=== PATIENT | male | born 2000 | race Caucasian/White ===

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

== ENCOUNTER → 2018-06-24 | Outpatient (CLI) | payer OTHER, BC ==
[2018-06-24 13:28] LABS: BASO % 0.3 % (0.0-1.0); EOS # 0.2 10^3/uL (0.0-0.50); EOS % 1.3 % (0.0-3.0); HEMATOCRIT 41.5 % (42.0-52.0); HEMOGLOBIN 13.7 g/dl (13.5-17.5); IMMATURE GRANULOCYTE % 0.4 % (0-3.0); LYMPH # 2.2 10^3/uL (1.5-6.5); LYMPH % 17.6 % (24.0-44.0); MEAN CORPUSCULAR HEMOGLOBIN 30.2 pg (27.0-33.0); MEAN CORPUSCULAR VOLUME 91.4 fl (80.0-96.0); MONO # 0.8 10^3/uL (0.0-0.8); MONO % 6.2 % (0.0-5.0); NEUTROPHILS # 9.4 10^3/uL (1.8-7.7); NEUTROPHILS % 74.2 % (36.0-66.0); PLATELET COUNT, AUTOMATED 422 10^3/uL (150-450); RED BLOOD COUNT 4.54 10^6/uL (4.30-6.10); RED CELL DISTRIBUTION WIDTH 11.7 % (11.5-14.5); WHITE BLOOD COUNT 12.7 10^3/uL (4.0-10.0)
[2018-06-24 13:58] LABS: ALBUMIN 3.9 GM/DL (3.2-5.2); ALBUMIN/GLOBULIN RATIO 0.95 (1.00-1.93); ALKALINE PHOSPHATASE 97 U/L (45-117); ALT/SGPT 20 U/L (12-78); ANION GAP 7 MEQ/L (8-16); AST/SGOT 12 U/L (7-37); BILIRUBIN,TOTAL 0.6 MG/DL (0.2-1.0); BLOOD UREA NITROGEN 11 MG/DL (7-18); CALCIUM LEVEL 9.2 MG/DL (8.5-10.1); CARBON DIOXIDE LEVEL 30 MEQ/L (21-32); CHLORIDE LEVEL 100 MEQ/L (98-107); CHOLESTEROL LEVEL 137 MG/DL (<200); CHOLESTEROL RISK RATIO 4.281 (<5); CREATININE FOR GFR 0.89 MG/DL (0.70-1.30); FREE T4 1.36 NG/DL (0.78-1.33); GLUCOSE, FASTING 106 MG/DL (70-100); HDL CHOLESTEROL 32 MG/DL (>40); LDL CHOLESTEROL 96 MG/DL (<100); NON-HDL-C 105 MG/DL; POTASSIUM SERUM 4.2 MEQ/L (3.5-5.1); SODIUM LEVEL 137 MEQ/L (136-145); TRIGLYCERIDES LEVEL 44 MG/DL (<150)
[2018-06-26 10:26] LABS: TOTAL 25(OH) VITAMIN D 21.3 NG/ML (30.0-100.0)
== END ==
LOC: M LAB 12:58
DX: R07.9 Chest pain, unspecified (principal)
CPT/HCPCS: 84443

== ENCOUNTER → 2018-10-12 | Outpatient (CLI) | payer OTHER ==
[2018-10-12 19:27] LABS: FREE T4 1.22 NG/DL (0.78-1.33); THYROID STIMULATING HORMONE 1.15 uIU/ML (0.463-3.98); TOTAL 25(OH) VITAMIN D 80.7 NG/ML (30.0-100.0)
[2018-10-12 21:03] LABS: BASO % 0.4 % (0.0-1.0); EOS # 0.1 10^3/uL (0.0-0.50); EOS % 1.5 % (0.0-3.0); HEMATOCRIT 49.4 % (42.0-52.0); HEMOGLOBIN 16.7 g/dl (13.5-17.5); LYMPH # 2.7 10^3/uL (1.5-6.5); LYMPH % 35.1 % (24.0-44.0); MEAN CORPUSCULAR HEMOGLOBIN 30.1 pg (27.0-33.0); MEAN CORPUSCULAR HGB CONC 33.8 g/dl (32.0-36.5); MEAN CORPUSCULAR VOLUME 89.2 fl (80.0-96.0); MONO # 0.4 10^3/uL (0.0-0.8); MONO % 4.9 % (0.0-5.0); NEUTROPHILS # 4.4 10^3/uL (1.8-7.7); PLATELET COUNT, AUTOMATED 238 10^3/uL (150-450); RED BLOOD COUNT 5.54 10^6/uL (4.30-6.10); WHITE BLOOD COUNT 7.5 10^3/uL (4.0-10.0)
== END ==
LOC: M SMT 15:22
PROVIDERS: ATTEND Family Medicine
DX: F32.1 Major depressive disorder, single episode, moderate (principal)

== ENCOUNTER → 2021-02-26 | Outpatient (CLI) | payer OTHER ==
[2021-02-26 16:55] LABS: BASO % 0.5 % (0.0-1.0); EOS # 0.2 10^3/uL (0.0-0.5); EOS % 2.7 % (0.0-3.0); HEMATOCRIT 48.9 % (42.0-52.0); HEMOGLOBIN 16.5 g/dl (13.5-17.5); LYMPH # 2.5 10^3/uL (1.5-5.0); LYMPH % 32.1 % (24.0-44.0); MEAN CORPUSCULAR HEMOGLOBIN 30.7 pg (27.0-33.0); MEAN CORPUSCULAR HGB CONC 33.7 g/dl (32.0-36.5); MEAN CORPUSCULAR VOLUME 91.1 fl (80.0-96.0); MONO # 0.5 10^3/uL (0.0-0.8); NEUTROPHILS # 4.5 10^3/uL (1.5-8.5); NEUTROPHILS % 58.4 % (36.0-66.0); PLATELET COUNT, AUTOMATED 230 10^3/uL (150-450); RED BLOOD COUNT 5.37 10^6/uL (4.30-6.10); WHITE BLOOD COUNT 7.7 10^3/uL (4.0-10.0)
[2021-02-26 17:34] LABS: ALBUMIN 4.5 GM/DL (3.2-5.2); BILIRUBIN,DIRECT 0.2 MG/DL (0.0-0.2); BILIRUBIN,TOTAL 1.3 MG/DL (0.2-1.0); TOTAL PROTEIN 7.9 GM/DL (6.4-8.2)
== END ==
LOC: M LAB 16:13
PROVIDERS: ATTEND Physician Assistant
DX: R94.5 Abnormal results of liver function studies (principal)

== ENCOUNTER → 2021-02-27 | Outpatient (CLI) | payer OTHER ==
--- NOTE | 2021-02-27 11:45 | REP ---
INDICATION: Q67.6 PECTUS EXCAVATUM. COMPARISON: None. TECHNIQUE: Noncontrast CT chest with coronal and sagittal reconstructions. FINDINGS: Of the lung ashby are well inflated without infiltrate, pleural effusion, atelectasis or mass. There is a pectus excavatum chest wall configuration indenting the right heart and displacing the heart to the left of midline further. There is no cardiomegaly, pericardial thickening or effusion. The aorta is without aneurysm. No pathologic sized mediastinal or hilar adenopathy. Tracheal airway intact there is no hiatal hernia. Bone windows show fusion of the upper sternum to the manubrium and unfused midsternal lucency either congenitally or from prior trauma. There is slight levoconvex curve upper thoracic spine. No compression deformity or destructive lesions. Visualized clavicles, ribs, portions of scapulae and humeral heads seen were unremarkable. The upper abdomen shows no acute finding with the visualized organs unremarkable IMPRESSION: 1. Pectus excavatum chest wall configuration with abutting and displacement of the heart towards the left of midline. And ununited mid sternal lucency is noted either congenital or posttraumatic. No gross cardiomegaly. 2. Lungs unremarkable. Heart, aorta, of the mediastinal structures all unremarkable. 3. Minor levoconvex curve upper thoracic spine with no compression deformity and remainder of the bones unremarkable. 4. Upper abdominal structures visible were unremarkable. <Electronically signed by Mohsen Loaiza > 02/27/21 [id number]
== END ==
LOC: M RAD 10:30
PROVIDERS: ATTEND Physician Assistant
DX: Q67.6 Pectus excavatum (principal)

== ENCOUNTER → 2021-03-24 | Outpatient (CLI) | payer OTHER ==
[~2021-03-24] MED LIST: E-Z-GAS II EFFERVESCENT PACKET (SODIUM BICARB./CITRIC ACID/SIMETHICONE) As Ordered ONE; E-Z-HD 98% w/w 340GM SUSP BTL As Ordered ONE; E-Z-PAQUE 96% w/w SUSP 176GM BTL As Ordered ONE
--- NOTE | 2021-03-25 15:25 | REP ---
INDICATION: REFLUX. COMPARISON: None. TECHNIQUE: The procedure was performed under the direct supervision of Dr. Austin. The images were reviewed with Dr. Austin. Liquid barium and gas producing crystals were given in the erect position as well as liquid barium in the prone oblique position in order to perform a double contrast upper GI examination. A combination of fluoroscopy, spot films and last image hold technology was utilized. 0.7 minutes of fluoro time was utilized for this procedure. FINDINGS: The applications instructor film shows no organomegaly or pathological masses. The intestinal gas pattern is non-specific. The oral and pharyngeal stages of deglutition are unremarkable. Esophageal transport is prompt and efficient and there is no esophagitis, stricture, mucosal ring or hiatal hernia. There is gastroesophageal reflux demonstrated to the level of the thoracic inlet. There is residual ingested material in the stomach which limits evaluation. The stomach is grossly normal. The rugal folds are smooth and regular. There is no evidence of gastritis neoplasm or ulcer disease. The duodenal valdivia are normally outlined. The mucosal folds are smooth and regular. There is no duodenitis pancreatitis peptic ulcer disease or neoplasm. The visualized portion of the proximal small bowel appears normal in course and caliber. IMPRESSION: 1. There is residual ingested material in the stomach which limits evaluation. The stomach is otherwise unremarkable. 2. There is gastroesophageal reflux demonstrated to the level of the thoracic inlet. <Electronically signed by Hemanth Berman > 03/24/21 1703 <Electronically signed by Man Austin > 03/24/21 170
== END ==
LOC: M RAD 08:26
PROVIDERS: ATTEND Physician Assistant
DX: K21.9 Gastro-esophageal reflux disease without esophagitis (principal)

== ENCOUNTER → 2021-06-11 | Outpatient (CLI) | payer OTHER ==
[~2021-06-11] MED LIST changes: -E-Z-GAS II EFFERVESCENT PACKET (SODIUM BICARB./CITRIC ACID/SIMETHICONE) As Ordered ONE; -E-Z-HD 98% w/w 340GM SUSP BTL As Ordered ONE; -E-Z-PAQUE 96% w/w SUSP 176GM BTL As Ordered ONE; +GASTROGRAFIN SOLUTION 30ML (Q9963) As Ordered ONE; +ISOVUE-370 76% 100ML VIAL As Ordered ONE
--- NOTE | 2021-06-11 14:04 | REP ---
INDICATION: NAUSEA, EPIGASTRIC PAIN. COMPARISON: None. TECHNIQUE: Standard helical technique after the intravenous administration of 100 cc Isovue 370. Oral bowel preparatory contrast was also administered prior to the exam. FINDINGS: The lung bases are clear. There is a pectus excavatum deformity. The liver, gallbladder, spleen, pancreas, adrenal glands, and kidneys are within normal limits. The abdominal aorta and para-aortic regions are within normal limits. The bowel loops and the mesenteries are within normal limits. There is no mass or adenopathy. There is no free fluid or free air. Bone window technique throughout the examination shows no acute osseous abnormality. IMPRESSION: There is no evidence of acute disease. Findings as described above. <Electronically signed by Vince Hester > 06/11/21 [id number]
== END ==
LOC: M RAD 11:44
PROVIDERS: ATTEND Surgery Trauma Surgery
DX: R11.0 Nausea (principal); R10.13 Epigastric pain

== ENCOUNTER → 2021-06-19 | Outpatient (CLI) | payer OTHER ==
[~2021-06-19] MED LIST changes: +E-Z-PAQUE 96% w/w SUSP 176GM BTL As Ordered ONE; -GASTROGRAFIN SOLUTION 30ML (Q9963) As Ordered ONE; -ISOVUE-370 76% 100ML VIAL As Ordered ONE; +VARIBAR NECTAR 40% w/v 240ML SUSP BTL As Ordered ONE; +VARIBAR PUDDING 40% w/v 230ML TUBE As Ordered ONE
--- NOTE | 2021-06-19 15:42 | REP ---
INDICATION: R11.0 NAUSEA. COMPARISON: None. TECHNIQUE: The procedure was performed by ROMEO Dolan, under the direct supervision of Dr. Nina. The procedure was performed with Andra Beverly from speech pathology present. 5 ml aliquots of thin, pudding, mixed fruit, soft food, hard food and pill consistency barium was administered. FINDINGS: The patient was able to successfully swallow all consistencies of barium without penetration or aspiration. The detailed report of this examination will be provided by speech pathology. IMPRESSION: The patient was able to successfully swallow all consistencies of barium without penetration or aspiration. Please see full report from speech pathology for further evaluation. 1.5 minutes of fluoroscopy time was utilized for this procedure. Some fluoroscopic images are performed with last image hold technology. These images require no additional radiation <Electronically signed by Lila Gipson > 06/19/21 1518 <Electronically signed by Armin Nina > 06/19/21 153
== END ==
LOC: M RAD 13:46
PROVIDERS: ATTEND Registered Nurse General Practice
DX: R11.0 Nausea (principal)